=== PATIENT | female | born 1980 | race Caucasian/White ===

== ENCOUNTER 2016-10-08 15:32 | Emergency (ER) | payer MEDICAID, OTHER, SELFPAY ==
[~2016-10-08] VITALS: Ht 167.6 cm; Wt 87.1 kg
[~2016-10-08 15:32] MED LIST: AMIT100TA PO; AMLO10TA2 PO; KEPP500T6 PO; LIDO5OI TOP; MORP15TASA PO; NITR4TASL SL; PERC10TA17 PO; PERC5TAB6 PO; PERCOCET PO; PROZ40CA PO; VALI10TA PO; VITMTA PO
[2016-10-08] MEDS ORDERED: CLEO300C2 PO (15:45)
[2016-10-08] MEDS ORDERED: NORCO, ANEXSIA 5/325MG TABLET (HYDROcodone/ACETAMINOPHEN) PO ONE (18:00)
[2016-10-08 18:16] VITALS: BP 145/102
== END 2016-10-08 18:31 | disposition home or self-care (01) ==
LOC: M ED 15:32
DX: K02.9 Dental caries, unspecified (principal); F17.210 Nicotine dependence, cigarettes, uncomplicated; Z88.2 Allergy status to sulfonamides; Z88.8 Allergy status to other drugs, medicaments and biological substances; Z88.6 Allergy status to analgesic agent; Z91.040 Latex allergy status; Z79.899 Other long term (current) drug therapy

== ENCOUNTER 2016-12-30 16:01 | Emergency (ER) | payer MEDICAID ==
[~2016-12-30] VITALS: Ht 167.6 cm; Wt 87.1 kg
[~2016-12-30 16:01] MED LIST changes: +CLEO300C2 PO
[2016-12-30 17:05] LABS: BASO % 0.5 % (0.0-1.0); EOS # 0.5 K/mm3 (0.0-0.50); EOS % 5.4 % (0.0-3.0); LARGE UNSTAINED CELL # 0.1 K/mm3 (0.0-0.4); LARGE UNSTAINED CELL % 1.1 % (0.0-4.0); LYMPH # 3.4 K/mm3 (1.5-4.5); LYMPH % 36.5 % (24.0-44.0); MEAN CORPUSCULAR HEMOGLOBIN 30.5 pg (27.0-33.0); MEAN CORPUSCULAR HGB CONC 34.9 g/dl (32.0-36.5); MEAN CORPUSCULAR VOLUME 87.5 fl (80.0-96.0); MONO # 0.3 K/mm3 (0.0-0.8); MONO % 3.3 % (0.0-5.0); NEUTROPHILS # 4.9 K/mm3 (1.8-7.7); NEUTROPHILS % 53.3 % (36.0-66.0); PLATELET COUNT, AUTOMATED 396 k/mm3 (150-450); RED CELL DISTRIBUTION WIDTH 12.5 % (11.5-14.5); WHITE BLOOD COUNT 9.2 K/mm3 (4.0-10.0)
[2016-12-30 17:23] LABS: CONTROL LINE HCG INT CTR LINE PRESENT
[2016-12-30 17:32] LABS: ANION GAP 10 MEQ/L (8-16); BLOOD UREA NITROGEN 12 MG/DL (7-18); CALCIUM LEVEL 8.7 MG/DL (8.5-10.1); CARBON DIOXIDE LEVEL 24 MEQ/L (21-32); CHLORIDE LEVEL 103 MEQ/L (98-107); CREATININE FOR GFR 0.76 MG/DL (0.55-1.02); GLOMERULAR FILTRATION RATE > 60.0 (>60); GLUCOSE, FASTING 136 MG/DL (70-105); POTASSIUM SERUM 3.8 MEQ/L (3.5-5.1); SODIUM LEVEL 137 MEQ/L (136-145)
--- NOTE | 2016-12-30 17:33 | REP ---
Clinical: Chest pain . Comparison: 11/17/2015 . Findings: The mediastinum and cardiac silhouette are stable and within normal limits for portable technique. The lung anderson are clear without acute consolidation, effusion, or pneumothorax. Skeletal structures are intact. Gunn rods are stable. Impression: Normal portable chest x-ray Signed by Tiburcio Sullivan MD 12/30/2016 05:23 P
[2016-12-30] MEDS ORDERED: ISOVUE-370 76% 100ML VIAL (Q9967) As Ordered ONE (17:34)
--- NOTE | 2016-12-30 17:57 | REP ---
Clinical: Acute chest pain. Technique: Axial contrast enhanced images from the thoracic inlet to the upper abdomen using 100 ml Isovue 370 intravenous contrast material with coronal and sagittal re-formations. Findings: Satisfactory enhancement of the pulmonary vasculature is achieved and no filling defects are identified to suggest pulmonary embolus. Thoracic aorta is normal caliber without aneurysm or dissection. Heart and pericardium are normal. The lung anderson are relatively clear although trace right basilar atelectasis cannot be excluded. Mild right hilar adenopathy is identified and unchanged compared to 09/19/2015. No nodule or mass lesion. No pleural effusion/reaction. No pneumothorax. Impression: No evidence for pulmonary embolus. Cannot exclude trace basilar atelectasis versus dependent change. Signed by Tiburcio Sullivan MD 12/30/2016 05:49 P
[2016-12-30] MEDS ORDERED: PERCOCET 5MG/325MG TAB PO ONE (18:15)
--- NOTE | 2016-12-30 18:40 | REPUSA ---
Clinical history: Pain, swelling. Findings: The left common femoral, superficial femoral, popliteal, and other deep venous structures c ompress normally and demonstrate normal color Doppler flow. Normal venous waveforms with augmentation are seen. Impression: No evidence of deep vein thrombosis in the left femoral popliteal venous system.
[2016-12-30] MEDS ORDERED: OXYC1TAB23 PO (19:06)
[2016-12-30 19:23] VITALS: BP 154/76
--- NOTE | 2016-12-30 21:40 | ECGEPIP ---
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
== END 2016-12-30 19:23 | disposition home or self-care (01) ==
LOC: M ED 16:50
DX: R07.89 Other chest pain (principal); E11.9 Type 2 diabetes mellitus without complications; F32.9 Major depressive disorder, single episode, unspecified; G43.909 Migraine, unspecified, not intractable, without status migrainosus; F17.200 Nicotine dependence, unspecified, uncomplicated; Z79.899 Other long term (current) drug therapy; Z79.891 Long term (current) use of opiate analgesic; Z91.040 Latex allergy status; Z88.5 Allergy status to narcotic agent; Z88.6 Allergy status to analgesic agent; Z88.2 Allergy status to sulfonamides; Z88.8 Allergy status to other drugs, medicaments and biological substances
CPT/HCPCS: 71010; 71275; 80048; 82550; 82553; 84703; 85025; 93005; 93041; 93971; 94760; 99284; Q9967

== ENCOUNTER → 2017-02-25 | Outpatient (REF) | payer OTHER ==
[~2017-02-25] MED LIST changes: +ADDE25CA PO; +ALBU17IN INH; +ATOR1TAB19 PO; +KEPP1TAB PO; -KEPP500T6 PO; +LAMO10TA PO; +LIDO5DIS41 TD; +OXYC1TAB23 PO; -PERC10TA17 PO; +PERC10TA26 PO; +PERC5TAB12 PO; -PERC5TAB6 PO; +QUET1TAB8 PO
[2017-02-25 16:41] LABS: ALBUMIN 3.8 GM/DL (3.2-5.2); ANION GAP 10 MEQ/L (8-16); BLOOD UREA NITROGEN 9 MG/DL (7-18); CALCIUM LEVEL 8.6 MG/DL (8.5-10.1); CARBON DIOXIDE LEVEL 26 MEQ/L (21-32); CHLORIDE LEVEL 104 MEQ/L (98-107); CHOLESTEROL LEVEL 204 MG/DL (<200); CREATININE FOR GFR 0.67 MG/DL (0.55-1.02); GLOMERULAR FILTRATION RATE > 60.0 (>60); GLUCOSE, FASTING 117 MG/DL (70-105); PHOSPHORUS LEVEL 3.5 MG/DL (2.5-4.9); POTASSIUM SERUM 4.1 MEQ/L (3.5-5.1); SODIUM LEVEL 140 MEQ/L (136-145); TRIGLYCERIDES LEVEL 416 MG/DL (<150)
== END ==
LOC: M SFHCPLAZ 14:32
PROVIDERS: ATTEND Student in an Organized Health Care Education/Training Program
DX: E11.9 Type 2 diabetes mellitus without complications (principal); E78.5 Hyperlipidemia, unspecified

== ENCOUNTER → 2017-03-17 | Outpatient (CLI) | payer OTHER ==
--- NOTE | 2017-03-18 08:42 | REP ---
PA and lateral chest: Comparisons are 12/30/2016 and 11/17/2015. The lung anderson are clear. The cardiac size is normal The devorah, mediastinum, and bony thorax are unremarkable except that a cervical spine stabilization plate and thoracic spine Gunn rods are again identified, unchanged. Impression: Negative PA and lateral chest. There is no interval change. Signed by Chidi Hathaway MD 03/17/2017 01:03 P
== END ==
LOC: M RAD 12:26
PROVIDERS: ATTEND Family Medicine
DX: Z01.818 Encounter for other preprocedural examination (principal)

== ENCOUNTER 2017-03-19 08:02 | Day surgery (SDC) | payer OTHER ==
[~2017-03-19] VITALS: Ht 165.1 cm; Wt 118.4 kg
[~2017-03-19 08:02] MED LIST changes: -ADDE25CA PO; -LIDO5DIS41 TD
[2017-03-19] MEDS ORDERED: AMPICILLIN SOD/SULBACTAM SOD 3 GM in D5W MINI-BAG PLUS 100 ML IV ONE (08:15)
[2017-03-19] MEDS ORDERED: dexameTHASONE 4 MG/ML 1ML VIAL (J1100) IV ONE (08:15)
[2017-03-19] MEDS ORDERED: LR 1,000 ML IV ONE (08:15)
[2017-03-19] MEDS ORDERED: ALBUTEROL SULFATE 2.5 MG/0.5 ML INH NEB SOLN As Ordered ONE (08:43)
[2017-03-19] MEDS ORDERED: ALBUTEROL SULFATE 2.5 MG/0.5 ML INH NEB SOLN INH ONE (08:45)
[2017-03-19] MEDS ORDERED: LIDO5DIS41 TD (09:00)
[2017-03-19] MEDS ORDERED: PHENYLEPHRINE 0.5% NASAL SPRAY 15 ML As Ordered ONE (09:43)
[2017-03-19 11:11] LABS: CONTROL LINE UCG INT CTR LINE PRESENT
[2017-03-19] MEDS ORDERED: SUCCINYLCHOLINE 100 MG/5 ML SYRINGE (J0330) As Ordered ONE (11:19)
[2017-03-19] MEDS ORDERED: MIDAZOLAM INJ 2 MG/2 ML VIAL (J2250) As Ordered ONE (11:19)
[2017-03-19] MEDS ORDERED: PROPOFOL 500 MG/50 ML VIAL As Ordered ONE (11:19)
[2017-03-19] MEDS ORDERED: fentaNYL 100 MCG/2 ML INJECTION (J3010) As Ordered ONE (11:19)
[2017-03-19] MEDS ORDERED: ONDANSETRON 4MG/2ML VIAL (J2405) As Ordered ONE (11:19)
[2017-03-19] MEDS ORDERED: HYDROmorphone HCL 2 MG/ML 1ML VIAL (J1170) As Ordered ONE (11:20)
[2017-03-19] MEDS ORDERED: LIDOCAINE 2% W/ EPINEPHRINE 1.7 ML DENTAL INJ As Ordered ONE (11:23)
[2017-03-19] MEDS ORDERED: DESFLURANE 240 ML INHALANT As Ordered ONE (11:36)
[2017-03-19] MEDS ORDERED: HYDROmorphone HCL 1 MG/ML SYRINGE (J1170) IV PRN (12:30)
[2017-03-19] MEDS ORDERED: ONDANSETRON 4MG/2ML VIAL (J2405) IV PRN (12:30)
[2017-03-19] MEDS ORDERED: LR 1,000 ML IV SCH (12:30)
[2017-03-19] MEDS ORDERED: fentaNYL 100 MCG/2 ML INJECTION (J3010) IV PRN (12:30)
[2017-03-19] MEDS: PERCOCET 5MG/325MG TAB PO PRN ×2 (12:42→13:18)
[2017-03-19 13:30] VITALS: BP 128/73
--- NOTE | 2017-03-20 13:24 | RO ---
DATE OF PROCEDURE: 03/19/2017 PREOPERATIVE DIAGNOSES: 1. Morbid obesity, uncontrolled seizures, diabetes mellitus, and history of chest pain, likely from cardiac origin, however still undetermined. 2. Grossly decayed teeth number 2, 13, 15, 31, and 32. POSTPROCEDURE DIAGNOSES: 1. Morbid obesity, uncontrolled seizures, diabetes mellitus, and history of chest pain, likely from cardiac origin, however still undetermined. 2. Grossly decayed teeth number 2, 13, 15, 31, and 32. SURGEON: Kareem Klein DMD, MD QUALITY CONTROL SUPERVISOR: ANESTHESIA: General endotracheal anesthesia via nasal ray. PROCEDURE PERFORMED: Surgical extraction of teeth number 2, 13, 15, 31, and 32. SPECIMEN: None. INDICATIONS FOR SURGERY: Zoe is a pleasant 36-year-old female who was referred to my office for evaluation for extraction of symptomatic and grossly decayed teeth number 2, 13, 15, 31, ad 32. Past medical history was reviewed with the patient, which reveals multiple comorbidities, as well as morbid obesity and severe dental anxiety. The patient reported that she does not wish to have the procedure performed under IV sedation and only wants to have it done under general anesthesia in an operating room. All the risks, benefits and alternatives were explained to the patient and a complete history and physical was performed and is in the patient's chart. The clinical examination reveals grossly decayed teeth with severe gingival inflammation around the teeth, including teeth number 2, 13, 15, 31 and 32. No signs or symptoms of swelling or infection were noted on the initial examination. DESCRIPTION OF PROCEDURE: On March 19, 2017, the patient presented to [facility] where she was met by myself and the anesthesiologist. Any last minute questions were addressed. History and physical and the consent were updated . At that point, the patient was taken back to the operating room. She was laid supine on the operating room table. Ulnar nerve protectors were placed. Noninvasive cardiac monitors were applied. At that point, the patient underwent general anesthesia with nasal ray intubation and the nasal tube was then secured to the patient's forehead. At this point, the patient was prepped and draped in the usual sterile fashion. A time-out procedure was performed to identify the patient, the procedure, and any other precautions. Preoperative antibiotics and Decadron were given in the IV. At this point, a moist throat pack was inserted in the patient's oropharynx, followed by the administration of nine carpules of 2% lidocaine with 1:100,000 epinephrine as inferior alveolar nerve blocks and local infiltration. This was followed by use of multiple 15 blade for a full-thickness sulcular flaps for teeth number 2, 13, 15, 31 and 32 to access teeth since they are heavily broken down and grossly decayed. The flaps were reflected subperiosteally. A Surgairtome was then used to make a buccal trough around teeth number 2, 13, 15, 31 and 32. At this point, the teeth were then luxated and delivered without any incident. All the sockets were curetted and irrigated. No sinus exposure was noted. The inferior alveolar nerve was not noted, and the lingual cortices were intact. At this point, the flaps and the wounds were closed semi primarily with #3-0 chromic sutures. Hemostasis was easily achieved with gauze pressure. At this point, the oral cavity was irrigated and suctioned. The throat pack was removed, and the patient was then extubated and awakened from general anesthesia and taken back to the postanesthesia care unit. Estimated blood loss was about 20 mL. COMPLICATIONS: None. DRAINS: There were no drains placed.
== END 2017-03-19 13:35 | disposition home or self-care (01) ==
LOC: M SDC 08:02
PROVIDERS: ATTEND Dentist
DX: K02.9 Dental caries, unspecified (principal); R56.9 Unspecified convulsions; E11.9 Type 2 diabetes mellitus without complications; F32.9 Major depressive disorder, single episode, unspecified; J45.909 Unspecified asthma, uncomplicated; Z79.899 Other long term (current) drug therapy; E66.01 Morbid (severe) obesity due to excess calories
CPT/HCPCS: 84703; 88300; D7210; D9223

== ENCOUNTER 2017-04-10 04:51 | Emergency (ER) | payer OTHER ==
[~2017-04-10] VITALS: Ht 165.1 cm; Wt 119.0 kg
[~2017-04-10 04:51] MED LIST changes: +LIDO5DIS41 TD
[2017-04-10 04:56] VITALS: BP 134/94
[2017-04-10] MEDS ORDERED: ADDE25CA PO (05:01)
[2017-04-10] MEDS ORDERED: MORPHINE 10 MG/ML 1ML VIAL IM ONE (05:30)
--- NOTE | 2017-04-10 06:10 | REPUSA ---
CLINICAL HISTORY: Pain. COMMENTS: The soft tissues are normal. There is no mass or abnormal calcification. There is no fracture or disl ocation. IMPRESSION: No fracture or dislocation. Thank you for your kind referral of this patient.
--- NOTE | 2017-04-10 06:10 | REPUSA ---
CLINICAL HISTORY: Hand pain. COMMENTS: Standard views show no fracture or other significant osseous abnormality. Soft tissue structures are intact. Mild osteoarthritic changes are noted at interphalangeal joints demonstrated by osteophytosis and erlin nt space narrowing. Mild osteoarthritic changes are noted at the 1st carpometacarpal joint demonstrat ed by osteophytosis, endplate sclerosis and joint space narrowing. IMPRESSION: 1. Osteoarthritic changes at interphalangeal joints and 1st carpometacarpal joint. 2. No fracture or dislocation. Thank you for your kind referral of this patient.
[2017-04-10] MEDS ORDERED: NORCO 5/325MG TABLET (BULK FOR ED) PO ONE (06:30)
[2017-06-23] MEDS ORDERED: QUET1TAB8 (20:06)
== END 2017-04-10 06:52 | disposition home or self-care (01) ==
LOC: M ED 04:51
DX: S63.501A Unspecified sprain of right wrist, initial encounter (principal); W19.XXXA Unspecified fall, initial encounter; Y92.9 Unspecified place or not applicable; Y93.01 Activity, walking, marching and hiking; Y99.9 Unspecified external cause status; M18.9 Osteoarthritis of first carpometacarpal joint, unspecified; Z79.899 Other long term (current) drug therapy; Z88.5 Allergy status to narcotic agent; Z88.8 Allergy status to other drugs, medicaments and biological substances; Z88.6 Allergy status to analgesic agent; Z88.2 Allergy status to sulfonamides; Z91.040 Latex allergy status

== ENCOUNTER 2017-06-23 19:45 | Emergency (ER) | payer OTHER ==
[~2017-06-23] VITALS: Ht 167.6 cm; Wt 89.1 kg
[~2017-06-23 19:45] MED LIST changes: +ADDE25CA PO
[2017-06-23] MEDS ORDERED: QUET1TAB8 PO (20:06)
[2017-06-23] MEDS ORDERED: LIDO2JELLY (20:06)
[2017-06-23] MEDS ORDERED: PANTOPRAZOLE 40MG INJ (PROTONIX) (C9113) IV ONE (20:15)
[2017-06-23] MEDS ORDERED: NS 1,000 ML IV ONE (20:15)
[2017-06-23] MEDS ORDERED: ONDANSETRON 4MG/2ML VIAL (J2405) IV ONE (20:15)
[2017-06-23] MEDS: MORPHINE 2 MG/ML 1ML SYRINGE IV PRN ×4 (20:15→22:08)
[2017-06-23 20:39] LABS: BASO % 0.4 % (0.0-1.0); EOS % 0.4 % (0.0-3.0); IMMATURE GRANULOCYTE % 0.5 % (0-0); LYMPH # 1.5 10^3/uL (1.5-4.5); LYMPH % 15.6 % (24.0-44.0); MEAN CORPUSCULAR HEMOGLOBIN 29.7 pg (27.0-33.0); MEAN CORPUSCULAR HGB CONC 35.4 g/dl (32.0-36.5); MEAN CORPUSCULAR VOLUME 83.8 fl (80.0-96.0); MONO # 0.5 10^3/uL (0.0-0.8); MONO % 5.3 % (0.0-5.0); NEUTROPHILS # 7.6 10^3/uL (1.8-7.7); NEUTROPHILS % 77.8 % (36.0-66.0); PLATELET COUNT, AUTOMATED 343 10^3/uL (150-450); RED CELL DISTRIBUTION WIDTH 12.6 % (11.5-14.5); WHITE BLOOD COUNT 9.8 10^3/uL (4.0-10.0)
[2017-06-23 20:53] LABS: CONTROL LINE HCG INT CTR LINE PRESENT
[2017-06-23 20:54] LABS: INR 0.96
[2017-06-23 20:58] LABS: ALBUMIN 3.7 GM/DL (3.2-5.2); ALBUMIN/GLOBULIN RATIO 0.82 (1.00-1.93); ALKALINE PHOSPHATASE 86 U/L (45-117); ALT/SGPT 59 U/L (12-78); AMYLASE 15 U/L (25-115); ANION GAP 11 MEQ/L (8-16); AST/SGOT 42 U/L (7-37); BILIRUBIN,DIRECT 0.2 MG/DL (0.0-0.2); BILIRUBIN,TOTAL 0.8 MG/DL (0.2-1.0); BLOOD UREA NITROGEN 5 MG/DL (7-18); CALCIUM LEVEL 9.6 MG/DL (8.5-10.1); CARBON DIOXIDE LEVEL 24 MEQ/L (21-32); CHLORIDE LEVEL 98 MEQ/L (98-107); CREATININE FOR GFR 0.59 MG/DL (0.55-1.02); GLOMERULAR FILTRATION RATE > 60.0 (>60); GLUCOSE, FASTING 157 MG/DL (70-105); POTASSIUM SERUM 3.5 MEQ/L (3.5-5.1); SODIUM LEVEL 133 MEQ/L (136-145); TOTAL PROTEIN 8.2 GM/DL (6.4-8.2)
--- NOTE | 2017-06-23 21:10 | REPUSA ---
Clinical history: Right upper quadrant pain. Findings: The pancreas is limited in visualization secondary to overlying bowel gas, but appears noemi sly unremarkable. The liver demonstrates increased echotexture and echogenicity, with no mass lesions . The gallbladder is unremarkable. The common bile duct measures 5 mm and is within normal limits. Th ere is no ascites. The right kidney measures 13.6 cm in length, and is unremarkable. Impression: No acute findings. Fatty infiltration of the liver.
[2017-06-23] MEDS ORDERED: ACETAMINOPHEN 325 MG TAB PO ONE (21:45)
[2017-06-23] MEDS ORDERED: LEVA1TAB2 PO (23:13)
[2017-06-23] MEDS ORDERED: LevoFLOXacin 500 MG TABLET PO ONE (23:15)
[2017-06-23] MEDS ORDERED: NORCO 5/325MG TABLET (BULK FOR ED) PO ONE (23:15)
[2017-06-23 23:45] VITALS: BP 128/68
--- NOTE | 2017-06-24 10:41 | REP ---
Clinical: Abdominal pain. Technique: Upright view of the chest with supine and upright views of the abdomen and pelvis. Findings: Frontal view of the chest demonstrates small to moderate left lower lobe infiltrate compatible with pneumonia and atelectasis and possible small pleural effusion. Abdomen and pelvis demonstrates relatively nonspecific bowel gas pattern without obstruction or perforation. No organomegaly. Skeletal structures demonstrate age-related degenerative and postoperative changes involving the thoracic spine. Impression: 1. Left lower lobe infiltrate compatible with pneumonia and small effusion. Follow-up to resolution recommended. 2. Nonspecific bowel gas pattern. Signed by Tiburcio Sullivan MD 06/24/2017 10:33 A
[2017-07-01] MEDS ORDERED: DEPO150I IM (13:48)
== END 2017-06-23 23:51 | disposition home or self-care (01) ==
LOC: EDBD 19:45 → M ED 19:45
DX: N39.0 Urinary tract infection, site not specified (principal); J18.9 Pneumonia, unspecified organism; G89.29 Other chronic pain; M54.9 Dorsalgia, unspecified; K76.0 Fatty (change of) liver, not elsewhere classified; R56.9 Unspecified convulsions; Z86.711 Personal history of pulmonary embolism; F17.200 Nicotine dependence, unspecified, uncomplicated; Z79.899 Other long term (current) drug therapy; Z88.5 Allergy status to narcotic agent; Z88.8 Allergy status to other drugs, medicaments and biological substances; Z88.6 Allergy status to analgesic agent; Z88.2 Allergy status to sulfonamides; Z91.040 Latex allergy status
CPT/HCPCS: 36415; 74022; 76705; 80048; 80076; 81001; 82150; 83690; 84703; 85025; 85610; 87088; 87186; 96361; 96374; 96375; 99284; C9113; J2405

== ENCOUNTER 2017-07-14 12:31 | Day surgery (SDC) | payer OTHER ==
[~2017-07-14] VITALS: Ht 167.6 cm; Wt 121.1 kg
[~2017-07-14 12:31] MED LIST changes: +DEPO150I IM; +LEVA1TAB2 PO; +LIDO2JELLY
[2017-07-14] MEDS ORDERED: CLINDAMYCIN 900 MG in APPROPRIATE DILUENT 1 EA IV ONE (12:45)
[2017-07-14] MEDS ORDERED: dexameTHASONE 4 MG/ML 1ML VIAL (J1100) IV ONE (13:00)
[2017-07-14 13:22] LABS: CONTROL LINE UCG INT CTR LINE PRESENT
[2017-07-14] MEDS ORDERED: LR 1,000 ML IV ONE (14:15)
[2017-07-14] MEDS ORDERED: LIDOCAINE 1% MDV 20ML VIAL SC ONE (14:15)
[2017-07-14] MEDS ORDERED: LIDOCAINE 2% W/ EPINEPHRINE 1.7 ML DENTAL INJ As Ordered ONE (15:10)
[2017-07-14] MEDS ORDERED: ONDANSETRON 4MG/2ML VIAL (J2405) As Ordered ONE (16:50)
[2017-07-14] MEDS ORDERED: SUCCINYLCHOLINE 100 MG/5 ML SYRINGE (J0330) As Ordered ONE (16:50)
[2017-07-14] MEDS ORDERED: fentaNYL 250 MCG/5 ML INJECTION (J3010) As Ordered ONE (16:50)
[2017-07-14] MEDS ORDERED: PROPOFOL 200 MG/20 ML VIAL As Ordered ONE (16:50)
[2017-07-14] MEDS ORDERED: LIDOCAINE 2% INJ 100 MG/5 ML SDV (FOR ANES.) As Ordered ONE (16:50)
[2017-07-14] MEDS ORDERED: MIDAZOLAM INJ 2 MG/2 ML VIAL (J2250) As Ordered ONE (16:50)
[2017-07-14] MEDS ORDERED: LR 1,000 ML IV SCH (17:15)
[2017-07-14] MEDS ORDERED: HYDROmorphone HCL 1 MG/ML SYRINGE (J1170) IV PRN (17:15)
[2017-07-14] MEDS ORDERED: fentaNYL 100 MCG/2 ML INJECTION (J3010) IV PRN (17:15)
[2017-07-14] MEDS ORDERED: ONDANSETRON 4MG/2ML VIAL (J2405) IV PRN (17:15)
[2017-07-14] MEDS ORDERED: METOCLOPRAMIDE INJ 10MG/2ML VIAL (J2765) IV PRN (17:15)
[2017-07-14 18:09] VITALS: BP 123/70
--- NOTE | 2017-07-15 06:50 | RO ---
DATE OF PROCEDURE: 07/14/2017 PREPROCEDURE DIAGNOSES: 1. Depression, diabetes type 2, pseudoseizures and asthma as well as severe dental anxiety. 2. Grossly decayed and symptomatic teeth #3, 4, 5, and 14. POSTPROCEDURE DIAGNOSES: PROCEDURE: Surgical extraction of teeth #3, 5, 15 and routine extraction of tooth #4. SURGEON: Kareem Klein DMD, MD [employer] MANAGER: ANESTHESIA: General endotracheal anesthesia via oral ray. ESTIMATED BLOOD LOSS: SPECIMEN: Teeth only for gross. INDICATION FOR SURGERY: Zoe is a pleasant 36-year-old female who was referred to my office for extraction of the aforementioned teeth. Review of her past medical history and her severe dental anxiety, it was deemed that she was not an ideal candidate for office IV sedation. Therefore we elected to have the procedure performed in an operating room setting under general anesthesia for her own safety. All the risks, benefits and alternatives were explained to the patient. A complete history and physical was performed and the patient's chart as well as a history and physical which was performed and is also in the patient's chart. DESCRIPTION OF PROCEDURE: On 07/14/2017, the patient presented to [facility]. Any last minute questions were addressed. At that point, the history and physical and the consent were updated and the patient was then taken back to the operating room. She was laid supine on the operating room table. Ulnar nerve protectors were placed. Noninvasive cardiac monitors were applied. At that point, the patient underwent general anesthesia with intubation with an oral ray. At this point, the patient was prepped and draped in the usual sterile fashion. A time-out procedure was performed to identify the patient, the procedure and any other precautions. Preoperative antibiotics and steroids were given in the IV preoperatively. At this point, a moist throat pack was then inserted in the patient's oropharynx followed by the administration of seven carpules of 2% lidocaine with 100,000 epinephrine as multiple tooth infiltrations and blocks. At this point, routine extraction of tooth #4 was performed followed by the making of a full-thickness flap around teeth #3, 5 and 14. Buccal bone was removed from site #3, 5 and 14. At this point, teeth #3, 5 and 14 were luxated and delivered with forceps. All four sockets were curetted and irrigated. No sinus exposure was noted and the flaps were then closed with #3-0 chromic sutures. Gauze hemostasis was easily achieved. The oral cavity was then irrigated and suctioned out. The moist throat pack was then removed and the patient was then awakened from general anesthesia and was extubated and taken back to the postanesthesia care unit. COMPLICATIONS: None. ESTIMATED BLOOD LOSS: About 20 mL. DRAINS: There were no drains placed.
== END 2017-07-14 18:11 | disposition home or self-care (01) ==
LOC: M SDC 12:31
PROVIDERS: ATTEND Dentist
DX: K02.9 Dental caries, unspecified (principal); E11.9 Type 2 diabetes mellitus without complications; F32.9 Major depressive disorder, single episode, unspecified; R56.9 Unspecified convulsions; J45.909 Unspecified asthma, uncomplicated; E03.9 Hypothyroidism, unspecified; F41.9 Anxiety disorder, unspecified; Z79.899 Other long term (current) drug therapy; Z91.040 Latex allergy status; Z88.8 Allergy status to other drugs, medicaments and biological substances; Z88.2 Allergy status to sulfonamides; Z79.51 Long term (current) use of inhaled steroids
CPT/HCPCS: 84703; 88300; D7210; D9223

== ENCOUNTER → 2017-09-23 | Outpatient (CLI) | payer OTHER ==
[2017-09-23 11:05] LABS: HEMATOCRIT 46.8 % (36.0-47.0); HEMOGLOBIN 16.2 g/dl (12.0-16.0); MEAN CORPUSCULAR HEMOGLOBIN 29.7 pg (27.0-33.0); MEAN CORPUSCULAR HGB CONC 34.6 g/dl (32.0-36.5); MEAN CORPUSCULAR VOLUME 85.9 fl (80.0-96.0); PLATELET COUNT, AUTOMATED 402 10^3/uL (150-450); RED BLOOD COUNT 5.45 10^6/uL (4.00-5.40); RED CELL DISTRIBUTION WIDTH 12.8 % (11.5-14.5); WHITE BLOOD COUNT 9.5 10^3/uL (4.0-10.0)
[2017-09-23 11:27] LABS: ESTIMATED AVERAGE GLUCOSE 134 MG/DL (60-110); HEMOGLOBIN A1c 6.3 %
[2017-09-23 11:45] LABS: ALKALINE PHOSPHATASE 78 U/L (45-117); AST/SGOT 30 U/L (7-37); BILIRUBIN,TOTAL 0.3 MG/DL (0.2-1.0); BLOOD UREA NITROGEN 13 MG/DL (7-18); CALCIUM LEVEL 8.7 MG/DL (8.5-10.1); CARBON DIOXIDE LEVEL 28 MEQ/L (21-32); CHLORIDE LEVEL 103 MEQ/L (98-107); CHOLESTEROL LEVEL 243 MG/DL (<200); CREATININE FOR GFR 0.65 MG/DL (0.55-1.30); GLUCOSE, FASTING 158 MG/DL (70-100); HDL CHOLESTEROL 22 MG/DL (>40); POTASSIUM SERUM 4.5 MEQ/L (3.5-5.1); TOTAL PROTEIN 7.4 GM/DL (6.4-8.2); TRIGLYCERIDES LEVEL 1530 MG/DL (<150)
[2017-09-23 12:49] LABS: ALT/SGPT 29 U/L (12-78)
[2017-09-23 13:24] LABS: TOTAL 25(OH) VITAMIN D 6.9 NG/ML (30.0-100.0)
[2017-09-23 13:51] LABS: ALBUMIN 3.8 GM/DL (3.2-5.2); ALBUMIN/GLOBULIN RATIO 1.06 (1.00-1.93); ANION GAP 7 MEQ/L (8-16); SODIUM LEVEL 138 MEQ/L (136-145)
== END ==
LOC: M LAB 10:29
DX: I10 Essential (primary) hypertension (principal); R53.83 Other fatigue; E03.9 Hypothyroidism, unspecified
CPT/HCPCS: 71046

== ENCOUNTER → 2018-08-26 | Outpatient (CLI) | payer OTHER ==
[~2018-08-26] MED LIST changes: -AMLO10TA2 PO; +AMLO10TA5 PO
--- NOTE | 2018-08-26 11:51 | REP ---
Duplex extremity venous ultrasound: Left lower extremity. History: Question DVT. Findings: The deep veins are anechoic and fully compressible from the groin to the popliteal fossa in the left lower extremity. Color flow imaging is homogeneous. Spectral Doppler interrogation demonstrates intact respiratory variation in flow and normal manual augmentation of flow. There is no evidence of deep vein thrombosis. There is a left inguinal lymph node measuring 1.8 x 0.8 x 1.1 cm. Impression: Negative left lower extremity duplex venous ultrasound. No evidence of deep vein thrombosis. Electronically Signed by Rogers St MD 08/26/2018 11:43 A
== END ==
LOC: M RAD 11:05
PROVIDERS: ATTEND Family Medicine
DX: M79.605 Pain in left leg (principal)

== ENCOUNTER 2021-01-02 19:51 | Inpatient (IN) | payer OTHER ==
[~2021-01-02] VITALS: Ht 162.6 cm; Wt 101.0 kg
[~2021-01-02 19:51] MED LIST changes: -AMLO10TA5 PO; +AMLO1TAB25 PO; +LAMO100T80 PO; -LAMO10TA PO; -LIDO5OI TOP; +LIDO5OIN11 TOP; +QUET100T2 PO; -QUET1TAB8 PO
[2021-01-02] MEDS ORDERED: ACET1TAB55 PO (20:00)
[2021-01-02 21:58] LABS: BASO # 0.1 10^3/uL (0.0-0.2); BASO % 0.4 % (0.0-1.0); EOS # 0.4 10^3/uL (0.0-0.5); EOS % 2.2 % (0.0-3.0); HEMATOCRIT 43.9 % (36.0-47.0); LYMPH # 2.1 10^3/uL (1.5-5.0); LYMPH % 12.8 % (24.0-44.0); MEAN CORPUSCULAR HEMOGLOBIN 28.9 pg (27.0-33.0); MEAN CORPUSCULAR HGB CONC 34.2 g/dl (32.0-36.5); MEAN CORPUSCULAR VOLUME 84.6 fl (80.0-96.0); MONO % 6.2 % (2.0-8.0); NEUTROPHILS # 12.8 10^3/uL (1.5-8.5); PLATELET COUNT, AUTOMATED 396 10^3/uL (150-450); RED BLOOD COUNT 5.19 10^6/uL (4.00-5.40); WHITE BLOOD COUNT 16.7 10^3/uL (4.0-10.0)
[2021-01-02] MEDS ORDERED: NS 1,000 ML IV ONE (22:20)
[2021-01-02] MEDS ORDERED: VANCOMYCIN HCL 2,000 MG in IV FLUID PLACE HOLDER 1 EA IV ONE (22:20)
[2021-01-02 22:25] LABS: BLOOD UREA NITROGEN 9 MG/DL (7-18); CALCIUM LEVEL 8.7 MG/DL (8.5-10.1); CARBON DIOXIDE LEVEL 27 MEQ/L (21-32); CHLORIDE LEVEL 101 MEQ/L (98-107); CREATININE FOR GFR 0.63 MG/DL (0.55-1.30); GLOMERULAR FILTRATION RATE > 60.0 (>58); GLUCOSE, FASTING 123 MG/DL (70-100); POTASSIUM SERUM 3.6 MEQ/L (3.5-5.1); SODIUM LEVEL 135 MEQ/L (136-145)
[2021-01-02] MEDS ORDERED: VANCOMYCIN HCL 1,000 MG, VIAL MATE ADAPTER 1 EACH in NS 250 ML IV ONE ×2 (22:30→23:30)
[2021-01-02 22:35] LABS: HCG, SERUM QUALITATIVE NEGATIVE (NEGATIVE)
[2021-01-02 22:37] LABS: ERYTHROCYTE SEDIMENTATION RATE 10 mm/hr (0-20)
[2021-01-02] MEDS ORDERED: PROAAER10 INH (23:13)
[2021-01-02] MEDS ORDERED: ACET-907 PO (23:13)
[2021-01-02] MEDS ORDERED: MULTCHW12 PO (23:13)
[2021-01-02 23:23] LABS: CPK CREATINE PHOSPHOKINASE 30 U/L (26-192); TROPONIN I < 0.02 NG/ML (< 0.10)
[2021-01-02 23:24] LABS: CK-MB VALUE MASS < 1.0 NG/ML (<3.6); MB/CK RELATIVE INDEX 3.33 (< OR =4)
[2021-01-02 23:33] LABS: AMPHETAMINES LEVEL URINE POSITIVE (NEGATIVE); BARBITURATES URINE NEGATIVE (NEGATIVE); BENZODIAZEPINES URINE NEGATIVE (NEGATIVE); CANNABINOIDS URINE NEGATIVE (NEGATIVE); COCAINE METABOLITE URINE NEGATIVE (NEGATIVE); METHADONE URINE NEGATIVE (NEGATIVE); OPIATES URINE NEGATIVE (NEGATIVE); PHENCYCLIDINE URINE NEGATIVE (NEGATIVE)
[2021-01-02] MEDS ORDERED: ACETAMINOPHEN 500 MG TAB PO ONE (23:45)
[2021-01-02 23:52] LABS: RSV AMPLIFICATION NEGATIVE (NEGATIVE)
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
--- NOTE | 2021-01-03 01:10 | REPVR ---
PROCEDURE INFORMATION: Exam: XR Chest Exam date and time: 01/02/2021 11:54 PM Age: 40 years old Clinical indication: Other: Heart murmur; Additional info: Heart murmur, new iv drug user TECHNIQUE: Imaging protocol: XR of the chest. Views: 2 views. COMPARISON: CR Chest, 2 view PA, Lat 09/23/2017 10:56 AM FINDINGS: Lungs: There is decreased inflation of the lungs. The lungs are unchanged. There are no interval infiltrates. Pleural spaces: Unremarkable. No pleural effusion. No pneumothorax. Heart/Mediastinum: The heart and mediastinum are unchanged. Bones/joints: Cervicothoracic fusion anteriorly. Thoracic fusion with pedicular screws and vertical rods. IMPRESSION: Stable chest since 09/23/2017. No acute interval process is identified. Electronically signed by: Richard Dutton On 01/03/2021 01:10:10 AM
[2021-01-03] MEDS ORDERED: ACETAMINOPHEN TAB 650MG DOSE (2X325MG) PO PRN (01:15)
[2021-01-03] MEDS ORDERED: MOM 30ML SUSPENSION UDC PO PRN (01:15)
[2021-01-03] MEDS ORDERED: MAALOX 30 ML SUSP *UDC PO PRN (01:15)
[2021-01-03] MEDS ORDERED: NICOTINE 7 MG/24 HR TRANSDERMAL TD PRN (01:30)
[2021-01-03] MEDS ORDERED: ONDANSETRON 4MG/2ML VIAL IV PRN (01:30)
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
[2021-01-03] MEDS: MORPHINE 2 MG/ML 1ML VIAL (J2270) IV PRN ×3 (02:44→20:21)
[2021-01-03] MEDS: NS 1,000 ML IV SCH ×4 (02:44→22:56)
[2021-01-03 03:15] VITALS: BP 123/76
[2021-01-03] MEDS: PERCOCET 5MG/325MG TAB PO PRN ×3 (04:47→19:30)
--- NOTE | 2021-01-03 05:38 | ECGEPIP ---
[facility] - ED Test Date: 2021-01-02 Pat Name: DAVE GALE Department: Room: - Gender: Female Center Customer Service Associate: Guy : 1980 Requested By: GUALBERTO Acosta PA-C Order Number: [id number] Reading MD: Leonardo Darnell Measurements Intervals [place] Rate: 103 P: 64 MD: 162 QRS: 2 QRSD: 100 T: 40 QT: 354 QTc: 463 Interpretive Statements Sinus tachycardia POOR R WAVE PROGRESSION RATE CHANGE COMPARED TO 09/23/17 Electronically Signed on 01-03-2021 5:38:00 EDT by Leonardo Darnell
[2021-01-03] MEDS ORDERED: VANCOMYCIN HCL 750 MG, VIAL MATE ADAPTER 1 EACH in NS 250 ML IV SCH (06:00)
[2021-01-03] MEDS ORDERED: VANCOMYCIN HCL 500 MG in D5W MINI-BAG PLUS 100 ML IV SCH (07:00)
[2021-01-03] MEDS: DOCUSATE SODIUM 100MG CAPSULE PO SCH ×2 (09:00→19:30)
[2021-01-03] MEDS ORDERED: VANCOMYCIN HCL 1,000 MG, VIAL MATE ADAPTER 1 EACH in NS 250 ML IV SCH (11:00)
[2021-01-03] MEDS: CEFTAROLINE FOSAMIL 600 MG in D5W MINI-BAG PLUS 50 ML IV SCH ×2 (11:02→22:56)
[2021-01-03] MEDS: ENOXAPARIN 40MG/0.4ML SYRINGE (J1650 PER 10MG) SC SCH (11:03)
--- NOTE | 2021-01-03 11:16 | REPVR ---
PROCEDURE INFORMATION: Exam: CT Head Without Contrast Exam date and time: 01/03/2021 10:43 AM Age: 40 years old Clinical indication: Pain; Other: Seizure TECHNIQUE: Imaging protocol: Computed tomography of the head without contrast. Radiation optimization: All CT scans at this facility use at least one of these dose optimization techniques: automated exposure control; mA and/or kV adjustment per patient size (includes targeted exams where dose is matched to clinical indication); or iterative reconstruction. COMPARISON: CT Head without contrast 07/11/2016 11:59 PM FINDINGS: Brain: No acute intracranial hemorrhage, cerebral edema, or midline shift. Cerebral ventricles: No hydrocephalus. Paranasal sinuses: There is no acute sinusitis. Mastoid air cells: Visualized mastoid air cells are well aerated. Orbital cavity: Unremarkable as visualized. Bones/joints: No acute fracture. Soft tissues: Unremarkable. IMPRESSION: No acute intracranial abnormality. Electronically signed by: Len Alejandra On 01/03/2021 11:16:37 AM
[2021-01-03 11:58] LABS: HEPATITIS B CORE ANTIBODY IGM NEGATIVE (NEGATIVE); HEPATITIS B SURFACE ANTIBODY NEGATIVE (POSITIVE); HEPATITIS B SURFACE ANTIGEN NEGATIVE (NEGATIVE); HIV 1&2 SCREEN CENTAUR NEGATIVE (NEGATIVE)
[2021-01-03 12:00] LABS: HEPATITIS C VIRUS ABY INDEX > 11.0 INDEX (<0.8)
[2021-01-03 14:00] VITALS: BP 118/72
--- NOTE | 2021-01-03 14:15 | ECHO ---
DATE OF PROCEDURE: 01/02/2021 Age: 40 Gender: Female Height: 64 inches Weight: 220 pounds REFERRING PHYSICIAN: UZAIR Alexander INDICATION: Cardiac murmur unspecified, fever. MEASUREMENTS: 2D Measurements: Aortic root 3.1 cm Proximal ascending aorta 2.9 cm Left atrium 3.6 cm Intraventricular septum 0.97 cm Posterior wall 1.075 cm Left ventricle diastole 4.7 cm Inferior vena cava 1.8 cm (more than 50% respiratory variation). Doppler Measurements: No aortic stenosis No aortic regurgitation Aortic valve velocity 164 cm/s LVOT velocity 108 cm/s Trace mitral regurgitation Mitral E velocity 75.4 cm/s Mitral A velocity 66.7 cm/s Mitral deceleration time 190 msec Very mild tricuspid regurgitation Estimated right ventricular systolic pressure 24-29 mmHg Estimated right atrial pressure 5-10 mmHg Pulmonary artery acceleration time 119 msec No pulmonic regurgitation MITRAL ANNULAR TISSUE DOPPLER E prime septal 10.2 cm/s, E prime lateral 13.6 cm/s DESCRIPTION: Rhythm was sinus tachycardia. Image quality was fair. No pericardial effusion. This was a 2D, M-mode, color flow Doppler, and pulsed wave Doppler examination including mitral annular tissue Doppler. CONCLUSIONS: 1. Normal left ventricle internal dimensions and wall thickness. Normal regional LV wall motion and wall thickening. Normal LV systolic function. LVEF 65-70% by visual estimate. Normal LV diastolic function. 2. No vegetations seen. 3. No pericardial effusion. 4. Overall normal appearing echocardiogram Doppler. The results of this study were communicated by telephone to referring individual, Nell Abbott. [facility]
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
[2021-01-03] MEDS ORDERED: LIDOCAINE W/EPINEPHRINE 1% 20ML VIAL SC ONE (17:00)
[2021-01-03 20:16] VITALS: BP 112/80
[2021-01-03 22:00] VITALS: BP 114/78
[2021-01-04] MEDS: PERCOCET 5MG/325MG TAB PO PRN ×3 (03:59→20:32)
[2021-01-04] MEDS: MORPHINE 2 MG/ML 1ML VIAL (J2270) IV PRN ×3 (05:44→23:30)
[2021-01-04 06:00] VITALS: BP 120/76
[2021-01-04 06:44] LABS: HEMATOCRIT 36.7 % (36.0-47.0); MEAN CORPUSCULAR HGB CONC 33.5 g/dl (32.0-36.5); MEAN CORPUSCULAR VOLUME 86.6 fl (80.0-96.0); PLATELET COUNT, AUTOMATED 376 10^3/uL (150-450); RED BLOOD COUNT 4.24 10^6/uL (4.00-5.40); WHITE BLOOD COUNT 8.8 10^3/uL (4.0-10.0)
[2021-01-04 06:53] LABS: ALBUMIN 2.2 GM/DL (3.2-5.2); ALT/SGPT 16 U/L (12-78); BILIRUBIN,TOTAL 0.1 MG/DL (0.2-1.0); BLOOD UREA NITROGEN 10 MG/DL (7-18); CALCIUM LEVEL 8.3 MG/DL (8.5-10.1); CARBON DIOXIDE LEVEL 24 MEQ/L (21-32); CHLORIDE LEVEL 110 MEQ/L (98-107); CREATININE FOR GFR 0.43 MG/DL (0.55-1.30); GLOMERULAR FILTRATION RATE > 60.0 (>58); GLUCOSE, FASTING 124 MG/DL (70-100); HEMOGLOBIN 12.3 g/dl (12.0-15.5); MAGNESIUM LEVEL 1.9 MG/DL (1.8-2.4); POTASSIUM SERUM 4.2 MEQ/L (3.5-5.1); SODIUM LEVEL 141 MEQ/L (136-145); TOTAL PROTEIN 5.7 GM/DL (6.4-8.2)
--- NOTE | 2021-01-04 08:31 | IPNPDOC ---
Text Note Date of Service The patient was seen on 01/04/21. NOTE Gen. surgery. Dr. Llanes The patient is a 40-year-old female with right arm abscess status post incision and drainage as per Dr. Llanes 01/03/21. Afebrile, VSS. Awake and alert Right arm with dressing intact, erythema does not appear to be extending beyond the areas of demarcation on lower arm and upper arm. Wound culture pending Blood culture negative 2 Assessment/plan Right arm abscess status post incision and drainage as per Dr. Llanes 01/03/21. Surrounding cellulitis. Erythema does not appear to be extending beyond the areas of demarcation. Continue to monitor. Wound culture is pending. Blood culture 2 negative 24 hours. Continue antibiotic and pain control as per hospitalist. The patient is reviewed by Dr. Llanes, Packing may be removed today, continue with dry dressing daily. VS,Fishbone, I+O VS, Fishbone, I+O Laboratory Tests 01/04/21 05:42 Vital Signs Date Time Temp Pulse Resp B/P (MAP) Pulse Ox O2 Delivery O2 Flow Rate FiO2 01/04/21 06:00 98.9 83 20 120/76 (91) 97 Room Air I&O- Last 24 Hours up to 6 AM 01/04/21 05:59 Intake Total 3605 ml Output Total 1200 ml Balance 2405 ml Tasha Cartagena January 04, 2021 08:31 ROBERTO LLANES MD January 05, 2021 10:06
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
[2021-01-04] MEDS: ENOXAPARIN 40MG/0.4ML SYRINGE (J1650 PER 10MG) SC SCH (09:47)
[2021-01-04] MEDS: DOCUSATE SODIUM 100MG CAPSULE PO SCH ×2 (09:47→20:31)
[2021-01-04] MEDS: CEFTAROLINE FOSAMIL 600 MG in D5W MINI-BAG PLUS 50 ML IV SCH ×2 (11:53→23:29)
[2021-01-04 12:08] LABS: HEPATITIS B CORE ANTIBODY IGG Negative (Negative); HEPATITIS C QUANTITATION 1810 IU/mL (.)
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
[2021-01-04 14:00] VITALS: BP 103/62
[2021-01-04 22:00] VITALS: BP 127/76
[2021-01-05 06:00] VITALS: BP 124/76
[2021-01-05 07:50] LABS: HEMATOCRIT 38.9 % (36.0-47.0); HEMOGLOBIN 12.8 g/dl (12.0-15.5); MEAN CORPUSCULAR HEMOGLOBIN 28.1 pg (27.0-33.0); MEAN CORPUSCULAR HGB CONC 32.9 g/dl (32.0-36.5); MEAN CORPUSCULAR VOLUME 85.3 fl (80.0-96.0); PLATELET COUNT, AUTOMATED 417 10^3/uL (150-450); RED BLOOD COUNT 4.56 10^6/uL (4.00-5.40); WHITE BLOOD COUNT 8.1 10^3/uL (4.0-10.0)
[2021-01-05 08:14] LABS: ALBUMIN 2.5 GM/DL (3.2-5.2); ALT/SGPT 17 U/L (12-78); BLOOD UREA NITROGEN 13 MG/DL (7-18); CALCIUM LEVEL 8.7 MG/DL (8.5-10.1); CARBON DIOXIDE LEVEL 27 MEQ/L (21-32); CHLORIDE LEVEL 107 MEQ/L (98-107); CREATININE FOR GFR 0.52 MG/DL (0.55-1.30); GLOMERULAR FILTRATION RATE > 60.0 (>58); GLUCOSE, FASTING 123 MG/DL (70-100); POTASSIUM SERUM 4.5 MEQ/L (3.5-5.1); SODIUM LEVEL 140 MEQ/L (136-145); TOTAL PROTEIN 6.2 GM/DL (6.4-8.2)
[2021-01-05] MEDS: ENOXAPARIN 40MG/0.4ML SYRINGE (J1650 PER 10MG) SC SCH (09:14)
[2021-01-05] MEDS: PERCOCET 5MG/325MG TAB PO PRN (09:14)
[2021-01-05] MEDS: DOCUSATE SODIUM 100MG CAPSULE PO SCH (09:14)
[2021-01-05] MEDS ORDERED: PERCOCET PO (10:58)
[2021-01-05] MEDS ORDERED: AUGM875T28 PO (11:03)
[2021-01-05] MEDS: CEFTAROLINE FOSAMIL 600 MG in D5W MINI-BAG PLUS 50 ML IV SCH (12:02)
[2021-01-05 12:37] LABS: BILIRUBIN,TOTAL < 0.1 MG/DL (0.2-1.0)
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
== END 2021-01-05 14:57 | disposition home or self-care (01) | DRG 364 ==
LOC: M ED 19:51 → M ED INP 01-03 01:11 → ENRESERV 01-03 02:19 → M MSPAV 01-03 03:13
PROVIDERS: ADMIT Family Medicine; ATTEND Internal Medicine
PROC: 0J9G0ZZ Drainage of Right Lower Arm Subcutaneous Tissue and Fascia, Open Approach (ICD-10-PCS; principal; 2021-01-04)
DX: L02.413 Cutaneous abscess of right upper limb (principal); I10 Essential (primary) hypertension; R22.31 Localized swelling, mass and lump, right upper limb; G40.909 Epilepsy, unspecified, not intractable, without status epilepticus; E11.9 Type 2 diabetes mellitus without complications; F17.210 Nicotine dependence, cigarettes, uncomplicated; I25.2 Old myocardial infarction; Z86.711 Personal history of pulmonary embolism; Z86.73 Personal history of transient ischemic attack (TIA), and cerebral infarction without residual deficits; Z91.14 Patient's other noncompliance with medication regimen; Z98.1 Arthrodesis status; Z88.2 Allergy status to sulfonamides; Z88.5 Allergy status to narcotic agent; Z88.8 Allergy status to other drugs, medicaments and biological substances; Z91.040 Latex allergy status; Z20.822 Contact with and (suspected) exposure to COVID-19; B19.20 Unspecified viral hepatitis C without hepatic coma; F15.10 Other stimulant abuse, uncomplicated; L03.113 Cellulitis of right upper limb

== ENCOUNTER 2021-09-09 08:02 | Emergency (ER) | payer OTHER ==
[~2021-09-09] VITALS: Ht 162.6 cm; Wt 90.0 kg
[~2021-09-09 08:02] MED LIST changes: +ACET-907 PO; +ACET1TAB55 PO; +AUGM875T28 PO; +MULTCHW12 PO; +PROAAER10 INH
[2021-09-09] MEDS ORDERED: LORazepam 2 MG/ML VIAL IM ONE (08:35)
[2021-09-09] MEDS ORDERED: OLANZapine INTRAMUSCULAR 10MG VIAL IM ONE (08:35)
[2021-09-09] MEDS ORDERED: NS 1,000 ML IV ONE ×3 (08:40→18:45)
[2021-09-09] MEDS ORDERED: LORazepam 2 MG/ML VIAL IV STA (09:16)
[2021-09-09 09:26] LABS: VENOUS BASE EXCESS -1.1 (-2.0-2.0); VENOUS HCO3 21.3 MEQ/L (23.0-27.0); VENOUS O2 SATURATION 90.5 % (60.0-80.0); VENOUS PARTIAL PRESSURE O2 56.2 mmHg (30.0-50.0); VENOUS PH 7.469 UNITS (7.330-7.430); VENOUS STANDARD HCO3 23.4 MEQ/L; VENOUS TOTAL CO2 22.2 MEQ/L (24.0-28.0)
[2021-09-09 09:28] LABS: BASO % 0.3 % (0.0-1.0); EOS # 0.2 10^3/uL (0.0-0.5); EOS % 1.3 % (0.0-3.0); HEMATOCRIT 44.1 % (36.0-47.0); HEMOGLOBIN 15.4 g/dl (12.0-15.5); LYMPH # 2.4 10^3/uL (1.5-5.0); LYMPH % 18.1 % (24.0-44.0); MEAN CORPUSCULAR HEMOGLOBIN 28.6 pg (27.0-33.0); MEAN CORPUSCULAR HGB CONC 34.9 g/dl (32.0-36.5); MONO # 0.6 10^3/uL (0.0-0.8); MONO % 4.6 % (2.0-8.0); NEUTROPHILS # 10.1 10^3/uL (1.5-8.5); NEUTROPHILS % 75.3 % (36.0-66.0); PLATELET COUNT, AUTOMATED 420 10^3/uL (150-450); RED BLOOD COUNT 5.38 10^6/uL (4.00-5.40); WHITE BLOOD COUNT 13.4 10^3/uL (4.0-10.0)
[2021-09-09 09:52] LABS: HCG, SERUM QUALITATIVE NEGATIVE (NEGATIVE)
[2021-09-09 10:02] LABS: OSMOLALITY SERUM 293 MOSM/KG (275-295)
[2021-09-09 10:03] LABS: ACETAMINOPHEN LEVEL < 2.0 UG/ML (10.0-30.0); ALT/SGPT 46 U/L (12-78); BILIRUBIN,DIRECT 0.4 MG/DL (0.0-0.2); BILIRUBIN,TOTAL 1.6 MG/DL (0.2-1.0); BLOOD UREA NITROGEN 21 MG/DL (7-18); CALCIUM LEVEL 8.9 MG/DL (8.5-10.1); CARBON DIOXIDE LEVEL 19 MEQ/L (21-32); CHLORIDE LEVEL 108 MEQ/L (98-107); CREATININE FOR GFR 0.85 MG/DL (0.55-1.30); ETHYL ALCOHOL (ETHANOL) 0.003 % (0.000-0.010); GLOMERULAR FILTRATION RATE > 60.0 (>58); GLUCOSE, FASTING 158 MG/DL (70-100); POTASSIUM SERUM 4.2 MEQ/L (3.5-5.1); SALICYLATE LEVEL < 1.7 MG/DL (5.0-30.0); SODIUM LEVEL 139 MEQ/L (136-145); TOTAL PROTEIN 7.8 GM/DL (6.4-8.2)
[2021-09-09 10:50] LABS: AMPHETAMINES LEVEL URINE POSITIVE (NEGATIVE); BARBITURATES URINE NEGATIVE (NEGATIVE); BENZODIAZEPINES URINE NEGATIVE (NEGATIVE); CANNABINOIDS URINE NEGATIVE (NEGATIVE); COCAINE METABOLITE URINE NEGATIVE (NEGATIVE); METHADONE URINE NEGATIVE (NEGATIVE); OPIATES URINE NEGATIVE (NEGATIVE); PHENCYCLIDINE URINE NEGATIVE (NEGATIVE)
[2021-09-09 11:22] LABS: RSV AMPLIFICATION NEGATIVE (NEGATIVE)
[2021-09-09] MEDS ORDERED: ISOVUE-370 76% 100ML VIAL As Ordered ONE (12:19)
[2021-09-09] MEDS ORDERED: HOME MED LIST COMPLETE! XX SCH (17:25)
[2021-09-09 22:15] VITALS: BP 116/56
[2021-09-09] MEDS ORDERED: ACETAMINOPHEN TAB 650MG DOSE (2X325MG) PO ONE (22:20)
== END 2021-09-10 00:43 | disposition home or self-care (01) ==
LOC: M ED 08:02
DX: F23 Brief psychotic disorder (principal); F19.10 Other psychoactive substance abuse, uncomplicated; R00.0 Tachycardia, unspecified; I25.2 Old myocardial infarction; E11.9 Type 2 diabetes mellitus without complications; I10 Essential (primary) hypertension; F17.200 Nicotine dependence, unspecified, uncomplicated; Z86.73 Personal history of transient ischemic attack (TIA), and cerebral infarction without residual deficits; Z86.711 Personal history of pulmonary embolism; K57.30 Diverticulosis of large intestine without perforation or abscess without bleeding; Z88.6 Allergy status to analgesic agent; Z88.2 Allergy status to sulfonamides; Z88.5 Allergy status to narcotic agent; Z88.8 Allergy status to other drugs, medicaments and biological substances; Z91.040 Latex allergy status
CPT/HCPCS: 51702; 70450; 71045; 71275; 72125; 74177; 80048; 80076; 80143; 80307; 82077; 82140; 82550; 82803; 83605; 83930; 84443; 84703; 85025; 87040; 87631; 93005; 93041; 96361; 96372; 96374; 99285; J2060; Q9967

== ENCOUNTER 2022-04-29 06:52 | Emergency (ER) | payer OTHER ==
[2022-04-29] MEDS ORDERED: diazePAM 10MG/2ML SYRINGE (J3360 PER 5MG) IM ONE (09:00)
[2022-04-29 10:51] VITALS: BP 141/82
[2022-04-29] MEDS ORDERED: VALI5TAB PO (11:21)
== END 2022-04-29 11:56 | disposition home or self-care (01) ==
LOC: M ED 06:52
DX: S30.0XXA Contusion of lower back and pelvis, initial encounter (principal); W07.XXXA Fall from chair, initial encounter; M51.36 Other intervertebral disc degeneration, lumbar region; F17.210 Nicotine dependence, cigarettes, uncomplicated; I10 Essential (primary) hypertension; G25.81 Restless legs syndrome; G40.909 Epilepsy, unspecified, not intractable, without status epilepticus; Z85.3 Personal history of malignant neoplasm of breast; F32.A Depression, unspecified; F41.9 Anxiety disorder, unspecified; F19.10 Other psychoactive substance abuse, uncomplicated; Z88.2 Allergy status to sulfonamides; Z88.5 Allergy status to narcotic agent; Z88.6 Allergy status to analgesic agent; Z88.8 Allergy status to other drugs, medicaments and biological substances; Z79.899 Other long term (current) drug therapy
CPT/HCPCS: 72128; 72131; 99284; J3360

== ENCOUNTER 2022-05-03 07:47 | Emergency (ER) | payer OTHER | END 2022-05-03 11:34 | disposition E | LOC: M ED 07:47 | DX: I46.9 Cardiac arrest, cause unspecified (principal); I25.2 Old myocardial infarction; E11.9 Type 2 diabetes mellitus without complications; I10 Essential (primary) hypertension; F19.10 Other psychoactive substance abuse, uncomplicated; Z88.6 Allergy status to analgesic agent; Z88.2 Allergy status to sulfonamides; Z88.5 Allergy status to narcotic agent; Z88.8 Allergy status to other drugs, medicaments and biological substances; Z91.040 Latex allergy status ==

== ENCOUNTER → 2022-05-03 | Outpatient (REF) ==
[~2022-05-03] MED LIST changes: +VALI5TAB PO
== END ==
LOC: M LAB 08:33